=== PATIENT | female | born 2000 | race Caucasian/White ===

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

== ENCOUNTER 2021-09-19 16:53 | Emergency (ER) | payer OTHER, MEDICAID ==
[~2021-09-19] VITALS: Ht 165.1 cm; Wt 53.5 kg
[~2021-09-19 16:53] MED LIST changes: +BIRTH CONTROL PO; +ONDANSETRON HCL4 M2 PO
[2021-09-19] MEDS ORDERED: CLARITIN10 M3 PO (17:12)
[2021-09-19 18:44] VITALS: BP 125/85
== END 2021-09-19 18:44 | disposition still patient (30) ==
LOC: M.ERS 16:53
DX: S61.411A Laceration without foreign body of right hand, initial encounter (principal); Z79.899 Other long term (current) drug therapy; W26.0XXA Contact with knife, initial encounter; Y93.89 Activity, other specified; Y92.000 Kitchen of unspecified non-institutional (private) residence as the place of occurrence of the external cause; Y99.8 Other external cause status